=== PATIENT | female | born 1960 | race Caucasian/White ===

== ENCOUNTER 2020-10-09 11:25 | Inpatient (IN) | payer MEDICARE ==
[~2020-10-09] VITALS: Ht 178 cm; Wt 162.9 kg
[2020-10-09 12:34] LABS: HEMOGLOBIN 15.6 gm/dl (12.3-15.3); RED BLOOD COUNT 4.52 M/UL (4.00-5.10); WHITE BLOOD COUNT 12.5 K/UL (4.5-11.0)
[2020-10-09 13:00] LABS: BUN/CREATININE RATIO 15 (0-10)
[2020-10-09] MEDS ORDERED: BENICAR 20 MG T20 MG PO (15:23)
[2020-10-09] MEDS ORDERED: ROPINIROLE HCL1 MG PO (15:23)
[2020-10-09] MEDS ORDERED: TRAZODONE HCL100 MG PO (15:23)
[2020-10-09] MEDS ORDERED: SYMBICORT 16010.2 GM INH (15:23)
[2020-10-09] MEDS ORDERED: VENTOLIN HFA 66.7 GM INH (15:24)
[2020-10-09] MEDS ORDERED: CELEXA40 MG PO (15:24)
[2020-10-09] MEDS ORDERED: BUSPAR 10MG10 MG PO (15:24)
[2020-10-09] MEDS ORDERED: PERCOCET 10-321 EACH PO (15:24)
[2020-10-09] MEDS ORDERED: ADULT LOW DOSE81 MG PO (15:24)
[2020-10-09] MEDS ORDERED: CYCLOBENZAPRIN7.5 MG PO (15:25)
[2020-10-09] MEDS ORDERED: KLONOPIN0.5 MG PO (15:25)
[2020-10-09] MEDS ORDERED: GABAPENTIN400 MG PO (15:26)
[2020-10-09] MEDS ORDERED: NEXIUM40 MG PO (15:26)
[2020-10-09] MEDS ORDERED: LASIX40 MG PO (15:26)
[2020-10-09] MEDS ORDERED: VOLTAREN100 GM TP (15:26)
[2020-10-09] MEDS ORDERED: IBUPROFEN800 MG PO (15:27)
[2020-10-09] MEDS ORDERED: ISOSORBIDE MONO30 MG PO (15:27)
[2020-10-09] MEDS ORDERED: GLUCOTROL 10 MG10 MG PO (15:27)
[2020-10-09] MEDS ORDERED: NITROSTAT 0.40.4 MG SL (15:28)
[2020-10-09] MEDS ORDERED: TOPROL XL25 MG PO (15:28)
[2020-10-09] MEDS ORDERED: NOVOLIN 70100 UNIT/1 SC (15:28)
[2020-10-09] MEDS ORDERED: SINGULAIR10 MG PO (15:28)
[2020-10-09] MEDS ORDERED: ZANAFLEX4 MG PO (15:29)
[2020-10-09] MEDS ORDERED: NOVOLOG 10100 UNITS2 SC (15:29)
[2020-10-09] MEDS ORDERED: CRESTOR10 MG PO (15:29)
[2020-10-10 02:28] LABS: HEMOGLOBIN 14.4 gm/dl (12.3-15.3); RED BLOOD COUNT 4.25 M/UL (4.00-5.10)
[2020-10-10 02:31] LABS: WHITE BLOOD COUNT 7.3 K/UL (4.5-11.0)
[2020-10-11 02:30] LABS: HEMOGLOBIN 13.6 gm/dl (12.3-15.3); RED BLOOD COUNT 3.99 M/UL (4.00-5.10)
[2020-10-11 02:32] LABS: WHITE BLOOD COUNT 11.5 K/UL (4.5-11.0)
--- NOTE | 2020-10-11 08:27 | NUR ---
ROOM AIR O2 SAT 86%
[2020-10-11] MEDS ORDERED: LEVOFLOXACIN500 MG PO (10:16)
== END 2020-10-11 12:22 | disposition home or self-care (01) | DRG 189 ==
LOC: ER1 11:25 → PROG CARE 15:01 → CDU 15:01 → PROG CARE 17:41
PROVIDERS: Emergency Medicine; ADMIT Internal Medicine
PROC: 5A09357 Assistance with Respiratory Ventilation, Less than 24 Consecutive Hours, Continuous Positive Airway Pressure (ICD-10-PCS; principal; 2020-10-09)
DX: J96.01 Acute respiratory failure with hypoxia (principal); J44.1 Chronic obstructive pulmonary disease with (acute) exacerbation; Z68.42 Body mass index [BMI] 45.0-49.9, adult; J96.02 Acute respiratory failure with hypercapnia; I11.0 Hypertensive heart disease with heart failure; I50.9 Heart failure, unspecified; E66.01 Morbid (severe) obesity due to excess calories; G89.29 Other chronic pain; Z20.822 Contact with and (suspected) exposure to COVID-19; M54.9 Dorsalgia, unspecified; I25.10 Atherosclerotic heart disease of native coronary artery without angina pectoris; F17.200 Nicotine dependence, unspecified, uncomplicated; M19.90 Unspecified osteoarthritis, unspecified site; E11.40 Type 2 diabetes mellitus with diabetic neuropathy, unspecified; G47.33 Obstructive sleep apnea (adult) (pediatric); Z71.6 Tobacco abuse counseling; Z90.710 Acquired absence of both cervix and uterus; Z98.890 Other specified postprocedural states; Z90.49 Acquired absence of other specified parts of digestive tract; Z99.81 Dependence on supplemental oxygen
CPT/HCPCS: 36415; 36600; 70450; 71045; 80048; 80053; 81001; 82550; 82553; 82803; 82962; 83605; 83874; 83880; 84132; 84484; 85025; 85379; 87040; 93005; 94640; 94660; 94760; 96365; 99285; J0696; J1650; J1956; J2930; J7040; U0002

== ENCOUNTER → 2020-11-05 | Outpatient (CLI) | payer MEDICARE ==
[~2020-11-05] MED LIST: ADULT LOW DOSE81 MG PO; BENICAR 20 MG T20 MG PO; BUSPAR 10MG10 MG PO; CELEXA40 MG PO; CRESTOR10 MG PO; CYCLOBENZAPRIN7.5 MG PO; GABAPENTIN400 MG PO; GLUCOTROL 10 MG10 MG PO; IBUPROFEN800 MG PO; ISOSORBIDE MONO30 MG PO; KLONOPIN0.5 MG PO; LASIX40 MG PO; LEVOFLOXACIN500 MG PO; NEXIUM40 MG PO; NITROSTAT 0.40.4 MG SL; NOVOLIN 70100 UNIT/1 SC; NOVOLOG 10100 UNITS2 SC; PERCOCET 10-321 EACH PO; ROPINIROLE HCL1 MG PO; SINGULAIR10 MG PO; SYMBICORT 16010.2 GM INH; TOPROL XL25 MG PO; TRAZODONE HCL100 MG PO; VENTOLIN HFA 66.7 GM INH; VOLTAREN100 GM TP; ZANAFLEX4 MG PO
== END ==
LOC: HEART 5 16:40
DX: J44.9 Chronic obstructive pulmonary disease, unspecified (principal); F17.210 Nicotine dependence, cigarettes, uncomplicated
CPT/HCPCS: 94060; 94729

== ENCOUNTER → 2022-01-04 | Outpatient (CLI) | payer MEDICARE | LOC: SLEEP 09:47 | DX: G47.33 Obstructive sleep apnea (adult) (pediatric) (principal) | CPT/HCPCS: 95811 ==